=== PATIENT | male | born 1950 | race Caucasian/White ===

== ENCOUNTER 2019-10-13 09:12 | Emergency (ER) | payer MEDICARE, BC ==
[2019-10-13 11:07] VITALS: BP 145/95
--- NOTE | 2019-10-13 11:56 | UC ---
Complaint Male HPI - HPI Summary HPI Summary: 69-year-old male comes in with a chief complaint of increased urinary frequency and burning with urination. 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 In the past amoxicillin is always successfully treated the infections. His last UTI in July patient reports he was put on amoxicillin and he was improving and then the hospital where he had the urine done call them and told him to start nitrofurantoin. He did take the nitrofurantoin and he did continue to improve. Patient lives most of the year in [place]. His urologist is in [place]. No fevers no chills no flank pain. No abdominal pain. Patient did take some grapefruit seed extract which he feels like did help some with the symptoms. - History of Current Complaint Chief Complaint: UCGU Stated Complaint: URINARY Time Seen by Provider: 10/13/19 11:13 Pain Intensity: 0 - Allergies/Home Medications Allergies/Adverse Reactions: Allergies Allergy/AdvReac Type Severity Reaction Status Date / Time No Known Allergies Allergy Verified 10/13/19 11:02 Home Medications: Home Medications diPHENhydraMINE PO* [Benadryl PO 25 MG TAB*] 12.5 - 25 mg PO BEDTIME PRN [History Confirmed 10/13/19] PMH/Surg Hx/FS Hx/Imm Hx Previously Healthy: Yes - recurrent UTIs, urine bladder diverticula - Surgical History Surgical History: Yes Surgery Procedure, Year, and Place: Adnoidectomy - Family History Known Family History: Positive: Cardiac Disease, Hypertension - Social History Alcohol Use: Occasionally Substance Use Type: None Smoking Status (MU): Never Smoked Tobacco Review of Systems All Other Systems Reviewed And Are Negative: Yes Constitutional: Positive: Negative Skin: Positive: Negative Eyes: Positive: Negative ENT: Positive: Negative Respiratory: Positive: Negative Cardiovascular: Positive: Negative Gastrointestinal: Positive: Negative Genitourinary: Positive: Dysuria, Other - see hpi Motor: Positive: Negative Neurovascular: Positive: Negative Musculoskeletal: Positive: Negative Neurological: Positive: Negative Psychological: Positive: Negative Is Patient Immunocompromised?: No Physical Exam Triage Information Reviewed: Yes Appearance: Well-Appearing, No Pain Distress, Well-Nourished Vital Signs: Initial Vital Signs Temp 97.9 F 10/13/19 11:00 Pulse 60 10/13/19 11:00 Resp 16 10/13/19 11:00 BP 145/95 10/13/19 11:00 Pulse Ox 100 10/13/19 11:00 Vital Signs Reviewed: Yes Eye Exam: Normal Eyes: Positive: Conjunctiva Clear Neck: Positive: Supple Respiratory: Positive: Lungs clear, Normal breath sounds, No respiratory distress Cardiovascular: Positive: RRR Abdomen Description: Positive: Nontender, Soft. Negative: CVA Tenderness (R), CVA Tenderness (L) Musculoskeletal: Positive: Strength Intact, ROM Intact Neurological: Positive: Alert, Muscle Tone Normal Psychological: Positive: Age Appropriate Behavior Skin Exam: Normal Complaint Male Course/Dx - Course Course Of Treatment: Patient lives in [place] and he's heading back there in 3 days. In the past amoxicillin has successfully treated is UTIs however he was changed to nitrofurantoin with the last UTI. Plan at this time is to treat with nitrofurantoin and as long as the patient's improving continue the nitrofurantoin however if he is not improving and the amoxicillin. And he should follow-up with the urologist in [place]. Get reevaluated sooner if worse any questions or concerns. - Differential Dx/Diagnosis Provider Diagnosis: UTI (urinary tract infection) Discharge ED - Sign-Out/Discharge Documenting (check all that apply): Patient Departure All imaging exams completed and their final reports reviewed: No Studies - Discharge Plan Condition: Stable Disposition: HOME Prescriptions: Amoxicillin PO (*) [Amoxicillin 500 MG CAP*] 500 mg PO TID #30 cap Nitrofurantoin Monohyd/M-Cryst [Macrobid 100 mg Capsule] 100 mg PO BID #20 cap Patient Education Materials: Urinary Tract Infection in Men (ED) Referrals: Lara TORO,Harman Stokes [Primary Care Provider] - Additional Instructions: FOLLOW UP WITH YOUR UROLOGIST. Start the nitrofurantoin antibiotic as directed. If not improving start the amoxicillin as directed. Urine culture and sensitivity takes 2-3 days for final results. GET REEVALUATED SOONER IF NOT IMPROVING OR WORSE; PAIN, FEVER, YOU FEEL ILL OR ANY QUESTIONS OR CONCERNS. - Billing Disposition and Condition Condition: STABLE Disposition: Home
--- NOTE | 2019-10-16 07:15 | UC ---
- Progress Note Progress Note: + Enterococcus on abx await sensitivity no change j Course/Dx - Diagnoses Provider Diagnoses: UTI (urinary tract infection) Discharge ED - Sign-Out/Discharge Documenting (check all that apply): Post-Discharge Follow Up All imaging exams completed and their final reports reviewed: No Studies - Discharge Plan Condition: Stable Disposition: HOME Prescriptions: Amoxicillin PO (*) [Amoxicillin 500 MG CAP*] 500 mg PO TID #30 cap Nitrofurantoin Monohyd/M-Cryst [Macrobid 100 mg Capsule] 100 mg PO BID #20 cap Patient Education Materials: Urinary Tract Infection in Men (ED) Referrals: Lara TORO,Harman Stokes [Primary Care Provider] - Additional Instructions: FOLLOW UP WITH YOUR UROLOGIST. Start the nitrofurantoin antibiotic as directed. If not improving start the amoxicillin as directed. Urine culture and sensitivity takes 2-3 days for final results. GET REEVALUATED SOONER IF NOT IMPROVING OR WORSE; PAIN, FEVER, YOU FEEL ILL OR ANY QUESTIONS OR CONCERNS. - Billing Disposition and Condition Condition: STABLE Disposition: Home
== END 2019-10-13 12:00 | disposition home or self-care (01) ==
LOC: UCCORT 09:12
DX: N39.0 Urinary tract infection, site not specified (principal)
CPT/HCPCS: 81003; 87086; 99202; G0463